=== PATIENT | male | born 1985 | race African-American/Black ===

== ENCOUNTER 2016-09-04 11:03 | Emergency (ER) | payer MEDICAID ==
[~2016-09-04] VITALS: Ht 185.4 cm; Wt 58.2 kg
[2016-09-04] MEDS ORDERED: HYDROmorphone HCL 2 MG/ML VL IV ONE ×2 (12:30→15:15)
[2016-09-04] MEDS ORDERED: SODIUM CHLORIDE 0.9% 500 ML IV ONE (12:30)
[2016-09-04] MEDS ORDERED: ONDANSETRON HCL 4 MG/2 ML VIAL IV ONE ×2 (12:30→15:15)
[2016-09-04 12:31] LABS: Basophils # (auto) 0 uL; Basophils % (auto) 0.2 % (0.0-2.0); DEFINITIVE VIEW TRANSMISSION; Eosinophils # (auto) 0 uL; Eosinophils % (auto) 0.2 % (0.0-7.0); Hematocrit 28.7 % (41.0-53.0); Hemoglobin 9.5 g/dL (13.5-17.5); Lymphocytes # (auto) 1.8 uL; Lymphocytes % (auto) 11.8 % (10.0-50.0); Mean Corpuscular Hemoglobin 26.5 pg (28.0-32.0); Mean Corpuscular Hgb Conc. 33.2 g/dL (32.0-36.0); Mean Corpuscular Volume 79.8 fL (80.0-100.0); Mean Platelet Volume 6.8 fL (7.4-10.4); Monocytes # (auto) 0.8 uL; Monocytes % (auto) 5.3 % (0.0-12.0); Neutrophils # (auto) 12.3 uL; Neutrophils % (auto) 82.5 % (37.0-80.0); Platelet Count (auto) 697 10^3/uL (140-450); Red Cell Distribution Width 13.1 % (11.6-16.0); White Blood Cell 14.9 10^3/uL (4.4-10.8)
[2016-09-04 12:45] LABS: Albumin 2.4 g/dL (3.4-5.0); BUN/Creatinine Ratio 15.6; Bilirubin, Total 1.1 mg/dL (0.2-1.0); Calcium 8.9 mg/dL (8.5-10.1); Potassium 3.3 mmol/L (3.5-5.1); Total Protein 8.1 g/dL (6.4-8.2)
[2016-09-04] MEDS ORDERED: IOHEXOL 300 MG/ML 100ML BOTTLE IJ ONE (13:10)
[2016-09-04 13:46] LABS: Lactic Acid w/Reflex 2.6 mmol/L (0.4-2.0)
[2016-09-04 14:17] LABS: REFLEX LACTIC ACID YES OR NO YES
[2016-09-04] MEDS ORDERED: ENOXAPARIN SOD 100 MG/1 ML SYRINGE SC ONE (14:30)
[2016-09-04] MEDS ORDERED: VANCOMYCIN 1GM/250ML D5W 250 ML IV ONE (14:30)
[2016-09-04] MEDS ORDERED: ACETAMINOPHEN 500 MG TAB PO ONE ×2 (17:45→18:00)
[2016-09-04 17:47] VITALS: BP 125/75
== END 2016-09-04 14:36 | disposition short-term general hospital (02) ==
LOC: ER 11:03
DX: I82.492 Acute embolism and thrombosis of other specified deep vein of left lower extremity (principal); K65.1 Peritoneal abscess; E87.1 Hypo-osmolality and hyponatremia
CPT/HCPCS: 36415; 73701; 80053; 83605; 83735; 85025; 87040; 94761; 96361; 96365; 96366; 96372; 96375; 96376; 99285; J1170; J1650; J2405; J3370; J7040; Q9967

== ENCOUNTER 2016-10-07 10:55 | Emergency (ER) | payer MEDICAID ==
[~2016-10-07] VITALS: Ht 185.4 cm; Wt 62.6 kg
[2016-10-07] MEDS ORDERED: cefTRIAXone SOD 1,000 MG VL IM ONE (16:30)
[2016-10-07 16:40] VITALS: BP 126/72
[2016-10-07] MEDS ORDERED: HYDROmorphone HCL 2 MG/ML VL IM ONE (17:30)
[2016-10-07] MEDS ORDERED: ONDANSETRON HCL 4 MG/2 ML VIAL IM ONE (17:30)
== END 2016-10-07 18:01 | disposition home or self-care (01) ==
LOC: ER 10:55
DX: M25.551 Pain in right hip (principal); Z48.01 Encounter for change or removal of surgical wound dressing; Z98.890 Other specified postprocedural states
CPT/HCPCS: 96372; 99284; J0696; J1170; J2405

== ENCOUNTER 2021-03-30 21:20 | Emergency (ER) | payer OTHER, MEDICAID ==
[~2021-03-30] VITALS: Ht 185.4 cm; Wt 89.8 kg
[2021-03-31 01:05] VITALS: BP 127/85
== END 2021-03-31 01:23 | disposition home or self-care (01) ==
LOC: ER 21:21
DX: S61.001A Unspecified open wound of right thumb without damage to nail, initial encounter (principal); X58.XXXA Exposure to other specified factors, initial encounter; Y93.89 Activity, other specified; Y92.89 Other specified places as the place of occurrence of the external cause; Y99.8 Other external cause status